=== PATIENT | male | born 1985 | race African-American/Black ===

== ENCOUNTER 2017-01-13 00:56 | Emergency (ER) | payer OTHER ==
[~2017-01-13 00:56] MED LIST: AMOXICILLIN PO; NO MEDICATIONS; TYLENOL/CODEINE1 TA1 PO
== END 2017-01-13 01:06 | disposition home or self-care (01) ==
LOC: SED 00:56
DX: S69.91XA Unspecified injury of right wrist, hand and finger(s), initial encounter (principal); F17.210 Nicotine dependence, cigarettes, uncomplicated; X58.XXXA Exposure to other specified factors, initial encounter; Y92.098 Other place in other non-institutional residence as the place of occurrence of the external cause
CPT/HCPCS: 10060; 90715; 99282; 99283